=== PATIENT | female | born 1975 | race Caucasian/White ===

== ENCOUNTER → 2017-10-04 | Outpatient (CLI) | payer OTHER | LOC: FIMAGING 12:17 | PROVIDERS: ATTEND Advanced Practice Midwife | DX: N63.21 Unspecified lump in the left breast, upper outer quadrant (principal) ==

== ENCOUNTER 2018-08-19 08:30 | Emergency (ER) | payer SELFPAY ==
--- NOTE | 2018-08-19 09:11 | EDPHY ---
H & P Stated Complaint: 08/13 dx PNA & flu rx augmentin/having r back pain stabbing with deep breann Time Seen by Provider: 08/19/18 08:49 - Personal History LMP (Females 10-55): 8-14 Days Ago Tetanus Vaccine Date: 03/18/2014 - Medical/Surgical History Hx Asthma: No Hx Chronic Respiratory Disease: No Hx Diabetes: No Hx Cardiac Disease: No Hx Renal Disease: No Hx Cirrhosis: No Hx Alcoholism: No Hx HIV/AIDS: No Hx Splenectomy or Spleen Trauma: No Other PMH: rhinoplasty 2005, two previous C/S. Pt worried about constipation - Social History Smoking Status: Never smoked Constitutional: Initial Vital Signs Temperature (C) 36.7 C 08/19/18 08:34 Heart Rate 78 08/19/18 08:34 Respiratory Rate 19 08/19/18 08:34 Blood Pressure 96/64 L 08/19/18 08:34 O2 Sat (%) 98 08/19/18 08:34 O2 Delivery Mode Room Air Allergies/Adverse Reactions: No Known Allergies Allergy (Unverified 07/31/09 03:47) Home Medications: Medication Instructions Recorded Albuterol [Proventil Inhaler] 1 - 2 puffs IH Q4 #1 mdi 08/19/18 Augmentin 875 MG TAB (*) 08/19/18 HYDROcodone/HOMATROPINE HYCODA 1 tsp PO Q4-6PRN PRN #120 ml 08/19/18 [Hycodan Syrup (RX)] predniSONE 40 mg PO DAILY #10 tab 08/19/18 Medical Decision Making - Diagnostics Imaging Results: Imaging Impressions Chest/Thorax CTA 08/19/18 09:17 Impression: 1. No evidence of thrombopulmonary embolic disease. 2. Improving right upper lobe pneumonia. 3. Trace right effusion. Findings discussed with Emergency Department physician, Dr. Rashard Anne on August 19, 2018 at 1014 hours. Imaging: Discussed imaging studies w/ director of emergency nursing Radiologist ED Course/Re-evaluation: CHIEF COMPLAINT: Right-sided back pain HISTORY OF PRESENT ILLNESS: This patient is a 43 year old female who was recently diagnosed with influenza A and pneumonia on 08/12/18 while travelling in [facility]. She was evaluated at the emergency department there and treated with Tamiflu and Z-pack. Augmentin was added after a chest x-ray positive for pneumonia on 08/13/18. She returned to [place] several days ago and has continued taking her Augmentin as prescribed, having completed her courses of Tamiflu and azithromycin. Yesterday afternoon, she developed a sharp pain in her back over the area of her right posterolateral lobe. She states this "feels like a knife stabs me" when she breathes, especially with deep inspiration. She endorses a productive cough with occasional pink-tinged sputum. She denies any recent chest, rib, or back trauma. No nausea, vomiting, urinary complaints, or other associated symptoms. REVIEW OF SYSTEMS: A comprehensive 10 system review of systems is otherwise negative aside from elements mentioned in the history of present illness and medical decision making. PHYSICAL EXAM: HR, BP, O2 Sat, RR. Temp noted General Appearance: Alert, well hydrated, appropriate, and non-toxic appearing. Head: Atraumatic without scalp tenderness or obvious injury Eyes: Pupils equal, round, reactive to light and accommodation, EOMI, no trauma , no injection. Ears: Clear bilaterally, no perforation, normal landmarks Nose: Atraumatic, no rhinorrhea, clear. Throat: There is no erythema or exudates, no lesions, normal tonsils, mucus membranes moist. Neck: Supple, nontender, no lymphadenopathy. Respiratory: Patient is taking very shallow breaths due to pain, difficult to auscultate. Cardiovascular: Regular rate and rhythm, no murmurs, rubs, or gallops. Bilateral carotid, radial, dorsalis pedis, and posterior tibial pulses intact. Good capillary refill all extremities. Gastrointestinal: Abdomen is soft, nontender, non-distended, no masses, no rebound, no guarding, no peritoneal signs. Musculoskeletal: Normal active ROM of all extremities, atraumatic. Neurological: Alert, appropriate, and interactive. Nonfocal neuro exam. Skin: No rashes, good turgor, no nodules on palpation. Past medical history: Denies Past surgical history: Noncontributory Family history: Noncontributory Social history: . at bedside. Employed. Lives in [place]. Does not abuse tobacco, drugs, or alcohol. DIFFERENTIAL DIAGNOSIS: The differential diagnosis for the patient's shortness of breath and hypoxemia included but was not limited to pneumonia, myocardial infarction, acute mountain sickness, high altitude pulmonary edema, congestive heart failure, and pulmonary embolus. MEDICAL DECISION MAKING: This 43 year old female with recent diagnoses of pneumonia and influenza A, currently on Augmentin, presents with right-sided back pain, exacerbated with inspiration. She is breathing very shallowly due to pain, and lung sounds are difficult to auscultate. The patient's oxygen saturation on room air is sufficient at 97%. No tachypnea or tachycardia. Plan for labs including i-stat chemistries. Plan for CTA chest to r/o pulmonary embolism or other acute processes. She declines DuoNeb as she had a poor reaction to this while in [facility]. She declines any narcotic pain medications. Plan to administer 30mg IV Toradol for pain relief. 10:14 Spoke with radiologist special education kindergarten teacher. CTA negative for PE. Evidence of improving right upper lobe pneumonia compared to prior (disc of images from patient's visit in [facility] provided by patient for comparison). See report above for details. Reassessed patient. Discussed imaging results. Plan to discharge home in good condition. She will continue taking Augmentin; she has had good coverage for atypical bacteria as well from her earlier course of macrolides. I will not add any additional antibiotic at this time. Prescriptions for Prednisone, Hycodan elixir, and albuterol inhaler provided for symptom relief. She will follow up with her primary care provider. She requests a referral to pulmonology as well, which I have provided. Follow up and return precautions discussed. She is comfortable with this plan. - Data Points Laboratory Results: 08/19/18 09:21 POC Hgb 10.5 gm/dL L gm/dL (12.6-16.3) POC Hct 31 % L % (38-47) POC Sodium 138 mEq/L mEq/L (135-145) POC Potassium 4.1 mEq/L mEq/L (3.3-5.0) POC Chloride 102 mEq/L mEq/L (97-110) POC BUN 8 mg/dL mg/dL (7-23) POC Creatinine 0.6 mg/dL mg/dL (0.6-1.0) POC Glucose 95 mg/dL mg/dL (70-100) Medications Given: Discontinued Medications Ketorolac Tromethamine (Toradol) 30 mg IVP EDNOW ONE Stop: 08/19/18 09:21 Last Admin: 08/19/18 10:23 Dose: Not Given Point of Care Test Results: Chemistry 08/19/18 09:21 POC Sodium 138 mEq/L mEq/L (135-145) POC Potassium 4.1 mEq/L mEq/L (3.3-5.0) POC Chloride 102 mEq/L mEq/L (97-110) POC BUN 8 mg/dL mg/dL (7-23) POC Creatinine 0.6 mg/dL mg/dL (0.6-1.0) POC Glucose 95 mg/dL mg/dL (70-100) ISTAT H&H 08/19/18 09:21 POC Hgb 10.5 gm/dL L gm/dL (12.6-16.3) POC Hct 31 % L % (38-47) Departure - Departure Disposition: Home, Routine, Self-Care Clinical Impression: Pneumonia Qualifiers: Pneumonia type: due to unspecified organism Laterality: right Lung location: upper lobe of lung Qualified Code(s): J18.1 - Lobar pneumonia, unspecified organism Condition: Good Instructions: Pneumonia (ED) Additional Instructions: Continue taking Augmentin as prescribed. Take Prednisone as prescribed. Take Hycodan elixir as prescribed as needed for cough suppressant. Use albuterol inhaler as prescribed as needed for difficulty breathing. Use Tylenol 650 mg every 4-6 hours, ibuprofen 800 mg every 8 hours as needed for fever. Stay well hydrated. Follow up with your primary care physician in 3-4 days if not improving. You may follow up with Dr. Milton, informatics application analyst, in the next week for further evaluation. Return to the Emergency Department for uncontrollable fever, shortness of breath , worsening pain, or other worsening of condition. Referrals: Layla Cruz MD [Medical Doctor] - As per Instructions Beltran Milton MD [Medical Doctor] - As per Instructions Prescriptions: Albuterol [Proventil Inhaler] 1 - 2 puffs IH Q4 #1 mdi HYDROcodone/HOMATROPINE HYCODA [Hycodan Syrup (RX)] 1 tsp PO Q4-6PRN PRN #120 ml PRN Reason: Cough, Moderate predniSONE 40 mg PO DAILY #10 tab Report Scribed for: Rashard Anne Report Scribed by: Ines Callahan Date of Report: 08/19/18 Time of Report: 09:58
[2018-08-19] MEDS ORDERED: KETOROLAC 30 MG/1 ML SDV IVP ONE (09:20)
[2018-08-19] MEDS ORDERED: IOPAMIDOL (ISOVUE 370) 100 ML BTL IV ONE (09:36)
[2018-08-19 10:35] VITALS: BP 102/78
== END 2018-08-19 10:35 | disposition home or self-care (01) ==
DX: J18.1 Lobar pneumonia, unspecified organism (principal); M54.5 Low back pain
CPT/HCPCS: 82435-PO; 82565-PO; 82947-PO; 84132-PO; 84295-PO; 84520-PO; 85014-ER; Q9967